=== PATIENT | male | born 1990 | race Hispanic/Latino ===

== ENCOUNTER 2017-08-18 19:46 | Emergency (ER) | payer BC ==
[2017-08-18 20:22] VITALS: BP 126/62; PULSE 83; RESP 18; TEMP 98.3; O2SAT 98
[2017-08-18 21:05] LABS: URINE BILIRUBIN NEGATIVE (NEGATIVE); URINE BLOOD NEGATIVE (NEGATIVE); URINE CLARITY CLEAR (Clear); URINE COLOR YELLOW (YELLOW); URINE GLUCOSE (UA) NEG (Normal); URINE LEUKOCYTE ESTERASE NEG Leu/uL (Negative); URINE PROTEIN NEGATIVE (NEGATIVE); URINE UROBILINOGEN 0.2-1.0 mg/dL (0.2-1.0)
--- NOTE | 2017-08-18 21:32 | ED PDOC ---
HPI: Male Pain Time Seen by Provider: 08/18/17 20:36 Chief Complaint (Nursing): Male Genitourinary Chief Complaint (Provider): Male Genitourinary History Per: Patient History/Exam Limitations: no limitations Onset/Duration Of Symptoms: Days (x5) Current Symptoms Are (Timing): Still Present Quality Of Discomfort: "Pain" Additional Complaint(s): 27 y/o male presents to the ED with left testicular pain. Patient states the pain has a gradual onset since Tuesday and feels worse today. He went to urgent care today and was told to come here for further evaluation. Patient complains of pain felt throughout his left testicular and groin region which feels worse when he walks. He complains of mild swelling to the left testicular area. Patient denies dysuria, hematuria, urinary frequency, ulcerations to genitalia, fever, chills, nausea, vomiting, abdominal pain, any trauma, new sexual partners , penile lesions or discharge. PMD: None available Past Medical History Reviewed: Historical Data, Nursing Documentation, Vital Signs Vital Signs: Last Vital Signs Temp 98.3 F 08/18/17 20:19 Pulse 83 08/18/17 20:19 Resp 18 08/18/17 20:19 BP 126/62 08/18/17 20:19 Pulse Ox 98 08/18/17 20:19 - Medical History PMH: No Chronic Diseases - Surgical History Surgical History: No Surg Hx - Family History Family History: States: No Known Family Hx - Social History Current smoker - smoking cessation education provided: No Ex-Smoker (has not smoked in the last 12 months): No - Allergies Allergies/Adverse Reactions: Allergies Allergy/AdvReac Type Severity Reaction Status Date / Time No Known Allergies Allergy Verified 08/18/17 20:22 Review of Systems ROS Statement: Except As Marked, All Systems Reviewed And Found Negative Constitutional: Negative for: Chills, Other (new sexual partners or trauma) Gastrointestinal: Negative for: Nausea, Vomiting, Abdominal Pain Genitourinary Male: Positive for: Other (left testicular pain and swelling, left groin pain). Negative for: Dysuria, Frequency, Hematuria, Penile Discharge , Rash, Penile Pain (lesions or ulcerations) Physical Exam - Reviewed Nursing Documentation Reviewed: Yes Vital Signs Reviewed: Yes - Physical Exam Appears: Positive for: Non-toxic, No Acute Distress Skin: Positive for: Warm, Dry. Negative for: Rash Gastrointestinal/Abdominal: Positive for: Soft. Negative for: Tenderness, Mass , Distended, Guarding Male Genital Exam: Positive for: scrotum tenderness (L), testicular tenderness ( L), other (Tobias Sarmiento RN). Negative for: scrotum tenderness (R), testicular tenderness (R) Back: Positive for: Normal Inspection. Negative for: L CVA Tenderness, R CVA Tenderness, Vertebral Tenderness Lymphatic: Negative for: Inguinal Node Tenderness (palptations) - ECG O2 Sat by Pulse Oximetry: 98 (RA) Pulse Ox Interpretation: Normal Medical Decision Making Medical Decision Making: Time: 20:19 Impression: Left testicular pain Differential Diagnosis: Epididymitis, hydocele, varicocele, testicular torsion EXAM: US Scrotum EXAM DATE/TIME: 08/18/2017 9:09 PM CLINICAL HISTORY: 27 years old, male; Pain; Scrotum pain; Additional info: Left testicular pain and swelling TECHNIQUE: Real-time ultrasound of the scrotum with color Doppler and image documentation. COMPARISON: No relevant prior studies available. FINDINGS: The left testicle is slightly enlarged with respect the right (left testicle 5.4 x 3.8 x 2.7 cm, right testicle 4.8 x 3.2 x 2.5 cm). The testicles are homogeneous bilaterally. Color flow and arterial waveforms are demonstrated in the testicles are bilaterally (no torsion). There is no asymmetry in vascularity. The epidiymis are normal bilaterally. There is a small left hydrocele. There is a small left varicocele. IMPRESSION: Small left hydrocele and small left varicocele. Slight asymmetry in testicular size however no vascular asymmetry to suggest acute infectious/inflammatory process/orchitis. Thank you for allowing us to participate in the care of your patient. Dictated and Authenticated by: Esperanza Gutierrez MD 08/18/2017 10:40 PM Eastern Time ([place] & [place]) Disposition - Clinical Impression Clinical Impression: Hydrocele, Varicocele Counseled Patient/Family Regarding: Studies Performed, Diagnosis, Need For Followup - Disposition Referrals: Edison Boswell MD [Staff Provider] - (FOLLOW UP WITH UROLOGY IN 1-2 WEEKS) Disposition: Routine/Home Disposition Time: 22:54 Condition: GOOD Additional Instructions: TAKE IBUPROFEN OR ACETAMINOPHEN NEEDED FOR PAIN Instructions: Hydrocele/Varicocele (DC)
--- NOTE | 2017-08-18 22:40 | US ---
EXAM: US Scrotum EXAM DATE/TIME: 08/18/2017 9:09 PM CLINICAL HISTORY: 27 years old, male; Pain; Scrotum pain; Additional info: Left testicular pain and swelling TECHNIQUE: Real-time ultrasound of the scrotum with color Doppler and image documentation. COMPARISON: No relevant prior studies available. FINDINGS: The left testicle is slightly enlarged with respect the right (left testicle 5.4 x 3.8 x 2.7 cm, right testicle 4.8 x 3.2 x 2.5 cm). The testicles are homogeneous bilaterally. Color flow and arterial waveforms are demonstrated in the testicles are bilaterally (no torsion). There is no asymmetry in vascularity. The epidiymis are normal bilaterally. There is a small left hydrocele. There is a small left varicocele. IMPRESSION: Small left hydrocele and small left varicocele. Slight asymmetry in testicular size however no vascular asymmetry to suggest acute infectious/inflammatory process/orchitis.
== END 2017-08-18 23:04 | disposition home or self-care (01) ==
LOC: H.ER 19:46
DX: N43.1 Infected hydrocele (principal); I86.1 Scrotal varices